=== PATIENT | male | born 1960 | race Caucasian/White ===

== ENCOUNTER 2018-10-27 09:10 | Emergency (ER) | payer OTHER ==
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
[2018-10-27 09:20] VITALS: BP 125/84; PULSE 65; TEMP 98.6; BMI 25.7
== END 2018-10-27 10:50 | disposition home or self-care (01) ==
LOC: FER 09:10
DX: R07.81 Pleurodynia (principal); M25.531 Pain in right wrist; S20.211A Contusion of right front wall of thorax, initial encounter; V18.4XXA Pedal cycle driver injured in noncollision transport accident in traffic accident, initial encounter; Y93.55 Activity, bike riding; Y92.89 Other specified places as the place of occurrence of the external cause; M72.2 Plantar fascial fibromatosis
CPT/HCPCS: 71101-TC-RT-FY; 72050-TC-FY; 73110-TC-RT-FY; 73130-TC-RT-FY; 99282-25

== ENCOUNTER 2020-06-01 17:50 | Emergency (ER) | payer OTHER | END 2020-06-01 18:03 | disposition home or self-care (01) | LOC: JVIRT 17:50 | DX: Z03.818 Encounter for observation for suspected exposure to other biological agents ruled out (principal) | CPT/HCPCS: C9803; Q3014-GT; U0003 ==